=== PATIENT | male | born 2000 | race Caucasian/White ===

== ENCOUNTER 2020-01-07 14:30 | Emergency (ER) | payer MEDICAID ==
[~2020-01-07] VITALS: Ht 172.7 cm; Wt 59.7 kg
--- NOTE | 2020-01-07 15:00 | NUR ---
PT AMBULATED TO ED. PT AMBULATED TO ROOM FROM LOBBY. PER PT PAINFUL RIGHT 5TH TOE DUE TO "DOOR GOT SHUT ON IT". PT RESTING IN BECKY GROSS NOTED AT THIS TIME. WILL CONTINUE TO MONITOR.
[2020-01-07] MEDS ORDERED: OXYcodone/APAP 5/325MG TABLET ONE (15:18)
[2020-01-07 15:20] VITALS: BP 116/76
--- NOTE | 2020-01-07 15:29 | NUR ---
XRAY AT BEDSIDE.
[2020-01-07] MEDS ORDERED: OXYcodone/APAP 5/325MG TABLET PO ONE (15:30)
== END 2020-01-07 16:35 | disposition home or self-care (01) ==
LOC: ED 16:33
DX: S93.124A Dislocation of metatarsophalangeal joint of right lesser toe(s), initial encounter (principal); X58.XXXA Exposure to other specified factors, initial encounter; Y93.89 Activity, other specified; Y92.89 Other specified places as the place of occurrence of the external cause; Y99.8 Other external cause status
CPT/HCPCS: 28630; 99284